=== PATIENT | female | born 2000 | race Caucasian/White ===

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

== ENCOUNTER 2018-05-02 22:21 | Emergency (ER) | payer MEDICAID ==
[~2018-05-02] VITALS: Ht 167.6 cm; Wt 81.6 kg
[2018-05-02 22:40] VITALS: BP_SYST 139
[2018-05-03] MEDS ORDERED: cefTRIAXone 1 GM VIAL IM ONE (00:30)
[2018-05-03] MEDS ORDERED: DIPH-TET-PERTUS Vaccine 0.5 ML VIAL (ADACEL) I.M. ONE (00:30)
[2018-05-03 01:15] VITALS: BP_SYST 130
== END 2018-05-03 01:15 | disposition home or self-care (01) ==
LOC: SED 22:21
DX: L03.116 Cellulitis of left lower limb (principal)
CPT/HCPCS: 90471; 90715; 96372; 99284; J0696

== ENCOUNTER 2019-06-28 16:56 | Emergency (ER) | payer MEDICAID ==
[~2019-06-28] VITALS: Ht 170.2 cm; Wt 77.1 kg
[2019-06-28 18:48] VITALS: BP_SYST 124
== END 2019-06-28 18:48 | disposition home or self-care (01) ==
LOC: SED 16:56
DX: J02.9 Acute pharyngitis, unspecified (principal); F17.210 Nicotine dependence, cigarettes, uncomplicated; Z91.018 Allergy to other foods
CPT/HCPCS: 99283

== ENCOUNTER 2020-07-02 14:58 | Emergency (ER) | payer BC, MEDICAID, SELFPAY ==
[~2020-07-02] VITALS: Ht 170.2 cm; Wt 90.7 kg
[2020-07-02 15:00] VITALS: BP_SYST 139
--- NOTE | 2020-07-02 15:00 | NUR ---
BROUGHT INTO TRIAGE TENT AND TRIAGED, WILL ASSUME CARE.
--- NOTE | 2020-07-02 15:03 | NUR ---
Pt brought by self, A&Ox4, pt presents to ER with chilss ,congestion, sore throat, skin pink and warm, cap refill <3.
--- NOTE | 2020-07-02 15:15 | NUR ---
Dr Balderas evaluating patient in the tent
[2020-07-02 16:05] VITALS: BP_SYST 139
--- NOTE | 2020-07-02 16:08 | NUR ---
Patient given written and verbal discharge instructions and verbalizes understanding. ER MD discussed with patient the results and treatment provided. Patient in stable condition. ID arm band removed. Rx of Motrin given. Patient educated on pain management and to follow up with PMD. Pain Scale 0/10. Opportunity for questions provided and answered. Medication side effect fact sheet provided.
== END 2020-07-02 16:05 | disposition home or self-care (01) ==
LOC: SED 14:58
DX: R50.9 Fever, unspecified (principal); Z20.828 Contact with and (suspected) exposure to other viral communicable diseases
CPT/HCPCS: 99283; U0003

== ENCOUNTER 2020-08-21 09:09 | Emergency (ER) | payer BC, MEDICAID ==
[~2020-08-21] VITALS: Ht 170.2 cm; Wt 90.7 kg
[2020-08-21 09:21] VITALS: BP_SYST 132
[2020-08-21] MEDS ORDERED: NITR-85 PO (09:30)
[2020-08-21 09:56] LABS: BILIRUBIN,URINE NEGATIVE (NEGATIVE); BLOOD, URINE 2+ (NEGATIVE); CLARITY/URINE CLEAR (CLEAR); COLOR,URINE YELLOW (YELLOW); GLUCOSE,URINE NEGATIVE (NEGATIVE); KETONES,URINE NEGATIVE (NEGATIVE); LEUKOCYTE ESTERASE ,URINE TRACE (NEGATIVE); NITRITE, URINE NEGATIVE (NEGATIVE); PROTEIN URINE NEGATIVE (NEGATIVE); UROBILINOGEN,URINE 0.2 (0.2-1.0)
[2020-08-21 11:05] LABS: BACTERIA,URINE None Seen /HPF (None Seen); CALCIUM OXALATE CRYSTALS,UR None Seen /HPF (None Seen); CALCIUM PHOSPHATE CRYSTALS,UR None Seen /HPF (None Seen); TRICHOMONAS,URINE None Seen /HPF (None Seen); WBC,URINE 0-3 /HPF (0-3); YEAST,URINE None Seen /HPF (None Seen)
[2020-08-21 11:19] VITALS: BP_SYST 133
== END 2020-08-21 11:21 | disposition home or self-care (01) ==
LOC: SED 09:09
DX: N30.00 Acute cystitis without hematuria (principal)
CPT/HCPCS: 81000-TC; 81025; 99283